=== PATIENT | female | born 1990 | race Two or more races ===

== ENCOUNTER → 2023-07-11 08:20 | Outpatient (REF) | payer OTHER, SELFPAY | LOC: HWRAD 08:20 | PROVIDERS: ATTENDING PHYSICIAN Student in an Organized Health Care Education/Training Program | DX: F64.9 Gender identity disorder, unspecified (principal) | CPT/HCPCS: 74177; Q9967 ==

== ENCOUNTER → 2023-10-16 10:55 | Outpatient (REF) | payer OTHER, SELFPAY | LOC: HWRAD 10:55 | DX: Z13.9 Encounter for screening, unspecified (principal); F64.0 Transsexualism | CPT/HCPCS: 70486 ==